=== PATIENT | male | born 1990 | race Caucasian/White ===

== ENCOUNTER 2017-01-29 20:38 | Inpatient (IN) | payer OTHER ==
[~2017-01-29] VITALS: Ht 175.3 cm; Wt 62.6 kg
[2017-01-29] MEDS ORDERED: LORAZEPAM 2 MG/1 ML VIAL IM PRN (21:00)
[2017-01-29] MEDS ORDERED: diphenhydrAMINE 50 MG CAPSULE PO PRN (21:00)
[2017-01-29] MEDS ORDERED: MIRALAX 17 GM POWD.PACK PO PRN (21:00)
[2017-01-29] MEDS ORDERED: LOPERAMIDE HCL 2 MG CAPSULE PO PRN ×2 (21:00)
[2017-01-29] MEDS ORDERED: ACETAMINOPHEN 325 MG TABLET PO PRN (21:00)
[2017-01-29] MEDS ORDERED: DICYCLOMINE HCL 20 MG TABLET PO PRN (21:00)
[2017-01-29] MEDS ORDERED: DIAZEPAM 5 MG TABLET PO PRN (21:00)
[2017-01-29] MEDS ORDERED: ONDANSETRON 4 MG/2 ML VIAL IM PRN (21:00)
[2017-01-29] MEDS ORDERED: DIAZEPAM 10 MG TABLET PO PRN ×2 (21:00)
[2017-01-29] MEDS ORDERED: CLONIDINE HCL 0.1 MG TABLET PO PRN (21:00)
[2017-01-29] MEDS ORDERED: THIAMINE HCL 200 MG/2 ML VIAL IM ONE (21:00)
[2017-01-29] MEDS ORDERED: ONDANSETRON ODT 4 MG TAB.RAPDIS SL PRN (21:00)
[2017-01-29] MEDS ORDERED: IBUPROFEN 600 MG TABLET PO PRN (21:00)
[2017-01-29] MEDS ORDERED: MAG HYDROX/AL HYDROX/SIMETH 30 ML LIQUID UDC PO PRN (21:00)
--- NOTE | 2017-01-29 21:30 | NUR ---
PRE-ADMISSION NOTE: Patient assessed in intake office at 21:30 on 01/29/2017. Patient is ambulatory with steady gate, stable, AOx4, speech is clear. Patient states that he is here, in the [facility] "first time for Safety Detox from prescribed Benzodiazepines". Patient states that he last used Xanax (Alprazolam) on "01/26/2017". Patient can't recalls amount he taken: "I don't know dosage that was - on 01/26/2017". Patient reports that used Xanax (Alprazolam): " 4 mg every day last five months". Patient also reports used Valium (Diazepam) 10 mg every day last 5 months. Last used on 01/29/2017 at 1900. Patient's CIWA 7. The patient reported the following symptoms of withdrawal: anxiety, agitation, nervousness, tremors, body aches, diaphoresis, abdominal cramps, headache, restless legs, insomnia and fatigue. Patient denies SI/HI. Breathing is even and unlabored. Patient denies SOB and chest pain. Last BM was "11/08/16 at 10:00". VS: T: 98'6; BP: 136/82; HR: 105; RR: 19; O2 SAT: 100%. Patient denies pain now: "0/10". Patient reports Allergy to PCN. Patient placed on Full Code, Regular Diet, Fall and Seizures Precautions. Patient instructed on unit protocol of vitals Q4H and COWS/CIWA assessments. Patient verbalized understanding and agreement. Patient also instructed on policy regarding destruction of any controlled substances/prescriptions brought to facility, and handling of all medications. Patient verbalized understanding and agreement. Will complete admission assessment when patient is brought up to unit.
[2017-01-29 21:43] LABS: BASOPHILS # (AUTO) 0.1 K/uL (0.0-8.0); BASOPHILS % (AUTO) 0.9 % (0.0-2.0); EOSINOPHILS # (AUTO) 0.7 K/uL (0.0-0.7); EOSINOPHILS % (AUTO) 5.9 % (0.0-7.0); HEMATOCRIT 43.7 % (40-50); HEMOGLOBIN 14.8 G/DL (14.0-18.0); LYMPHOCYTES # (AUTO) 2.5 K/UL (0.8-4.8); LYMPHOCYTES % (AUTO) 22.6 % (20.5-51.5); MEAN CORPUSCULAR HEMOGLOBIN 34.7 UUG (27.0-31.0); MEAN CORPUSCULAR HGB CONC 34 g/dL (32.0-37.0); MEAN CORPUSCULAR VOLUME 102.8 FL (82.0-92.0); MONOCYTES # (AUTO) 0.8 K/UL (0.1-1.30); MONOCYTES % (AUTO) 7.1 % (0.0-11.0); NEUTROPHILS # (AUTO) 7.1 K/UL (1.8-8.9); NEUTROPHILS % (AUTO) 63.5 % (38.5-71.5); PLATELET COUNT (AUTO) 283 K/UL (150-450); RED BLOOD CELL COUNT(AUTO) 4.25 MIL/UL (4.7-6.1); WHITE BLOOD COUNT (AUTO) 11.2 K/UL (4.0-11.2)
[2017-01-29 21:51] LABS: ALANINE AMINOTRANSFERASE 287 U/L (16-63); ALKALINE PHOSPHATASE 132 U/L (50-136); AMYLASE 65 U/L (25-115); ASPARTATE AMINOTRANSFERASE 237 U/L (15-37); BILIRUBIN,TOTAL 0.6 mg/dL (0.2-1.0); CARBON DIOXIDE 29 mmol/L (21-32); CHLORIDE 99 mmol/L (98-107); CREATININE 0.9 mg/dL (0.6-1.3); GLUCOSE 173 mg/dL (74-106); LIPASE 478 U/L (73-393); MAGNESIUM 1.5 mg/dL (1.8-2.4); POTASSIUM 3.8 mmol/L (3.5-5.1); UREA NITROGEN, BLOOD 11 mg/dL (7-18)
[2017-01-29 21:52] VITALS: BP 136/82
--- NOTE | 2017-01-29 21:52 | NUR ---
ADMISSION NOTE New patient is a 26-year-old male admitted to [facility] on 01/29/2017 at 2152 for medically supervised withdrawal from Benzodiazepines, and Alcohol. Patient reports Allergy to PCN. Patient placed on Full Code, Regular Diet, Fall and Seizures Precautions. Patient denies Seizures History. PCP: Hany Richards MD. Pre-assessment completed in intake. Patient provided UDS test at this time. Patient is ambulatory with steady gate, stable, A&Ox4, speech is clear. VS upon admission: T: 98'6; BP: 136/82; HR: 105; RR: 19; O2 SAT: 100%. Patient denies pain now: "0/10". Ht: 69 in; Wt: 138 lb. CIWA 7. The patient reported the following symptoms of withdrawal: anxiety, agitation, nervousness, tremors, diaphoresis, headache, restless legs, insomnia and fatigue. Patient denies SI/HI. Patient is cooperative, friendly, and verbally appropriate. Patient reports the following substances use: 1."Xanax (Alprazolam) PO 4-6 mg every day since 06/2016. Last dose on 01/26/2017". 2."Valium (Diazepam) PO unspecified dose occasionally. Last use on 01/29/2017 at 1100". 3."Alcohol since 2000. Sober from 2009 to 06/2016. Vodka since 06/2016 12-14 ounces every day. Last use 450 ml on 01/28/2017". 4."Marijuana smoking every day unspecified dose every day since 2000. Last use unspecified dose on 01/29/2017, prior admission". 5. Tobacco smoking 10 cigarettes every day since 2000". Written smoking cessation education provided.. Patient verbalized understanding. Patient reports was transferred from "[facility] for a higher level of care". Patient reports that longest period of sobriety was from 2009 to 06/2016. Patient states that is "first Detox now". Patient reports a history of suicidal ideations. Patient denies current SI/HI. Past Medical History: Anxiety, Depression, Traumatic brain injury, Chronic neuropathic pain, Asperger syndrome. Insomnia, Substances use, Alcohol Abuse, Chronic tobacco use. Home Medications: 1. (Divalproex Sodium) 500 Mg Tablet.dr, 500 MG PO BID, TAB. 2. Olanzapine (OLANZAPINE) 10 Mg Tablet, 10 MG PO HS, TAB. 3. Propranolol Hcl (Propranolol Hcl) 10 Mg Tablet, 10 MG PO TID for ANXIETY, TAB. 4. Ondansetron (Ondansetron Odt) 4 Mg Tab.rapdis, 4 MG PO Q6H PRN for NAUSEA & VOMITING, TAB. 5. Quetiapine Fumarate (Seroquel) 25 Mg Tablet, 25 MG PO BID, TAB. Upon initial assessment, patient's Respirations unlabored and even. Patient denies SOB and chest pain. Lungs Sounds are clear bilaterally. Bowel Sounds active in all x4 quadrants. Abdomen is soft and non-tender. PERRLA, brisk capillary refill, oil burner repairer equal and strong. Skin is intact, warm and dry to touch. Patient oriented to his room, Nurse Call Light, and Serenity Floor. Encourage fluids as tolerated. Encourage to attend activities groups. All needs met. Safety measures on place. Call light within reach, bed in lowest position and locked, padded rails up bilaterally rails up bilaterally. Patient admitted under the care doctor Fletcher Winston MD. Doctor Fletcher Winston MD aware for patient condition. Will continue to monitor closely.
[2017-01-29] MEDS ORDERED: QUET25TA PO (21:54)
[2017-01-29] MEDS ORDERED: DIVA500T7 PO (21:54)
[2017-01-29] MEDS ORDERED: OLAN10TA23 PO (21:54)
[2017-01-29] MEDS ORDERED: PROP10TA10 PO (21:54)
[2017-01-29] MEDS ORDERED: ONDA4TAB11 PO (21:54)
[2017-01-29 21:55] LABS: ETHANOL < 3 MG/DL (0-0)
[2017-01-29 21:59] LABS: *AMPHETAMINE, URINE NEGATIVE (NEGATIVE); *BARBITURATE, URINE NEGATIVE (NEGATIVE); *CANNABINOID, URINE POSITIVE (NEGATIVE); *COCCAINE, URINE NEGATIVE (NEGATIVE); *OPIATE, URINE NEGATIVE (NEGATIVE); *PHENCYCLIDINE SCREEN,URINE NEGATIVE (NEGATIVE)
[2017-01-29] MEDS ORDERED: MAGNESIUM OXIDE 400 MG TABLET PO ONE (22:00)
[2017-01-29 22:13] LABS: THYROID STIMULATING HORMONE 3.088 mIU/mL (0.358-3.740)
[2017-01-29 22:16] LABS: BAND % (MANUAL) 5 % (0-10); LYMPHOCYTES % (MANUAL) 25 % (20-40); NEUTROPHILS % (MANUAL) 58 % (42-75)
[2017-01-29 22:17] LABS: EOSINOPHILS % (MANUAL) 4 % (0-8); MONOCYTES % (MANUAL) 8 % (2-10)
[2017-01-29] MEDS ORDERED: DIAZEPAM 10 MG TABLET PO ONE (22:30)
[2017-01-29] MEDS ORDERED: THIAMINE HCL 200 MG/2 ML VIAL ONE (23:00)
[2017-01-29] MEDS ORDERED: DIAZEPAM 10 MG TABLET ONE (23:01)
[2017-01-29] MEDS ORDERED: MAGNESIUM OXIDE 400 MG TABLET ONE (23:01)
--- NOTE | 2017-01-29 23:03 | NUR ---
MAG-OX 800 MG 2 TAB PO ADMINISTRATION MAG-OX 800 MG 2 TAB PO ADMINISTRATED FOR LOW MAGNESIUM LEVEL, ORDERED. PATIENT TOLERATED WELL. ALL NEEDS MET. SAFETY MEASURES IN THE PLACE: CALL LIGHT WITHIN REACH, BED LOCKED AND IN THE LOWEST POSITION, PADDED RAILS UPX2. WILL CONTINUE TO MONITOR CLOSELY. Addendum: 01/30/17 at 0603 by DANIEL ACEVEDO RN Magnesium Level: 1.5(L).
[2017-01-30] VITALS: BP 131/88
--- NOTE | 2017-01-30 00:45 | NUR ---
PRN BENADRYL 50 MG 1 CAP PO ADMINISTRATION. Patient c/o insomnia and asked aid. PRN Benadryl 50 mg 1 cap PO administrated for insomnia with full glass of water as ordered. Patient tolerated well. All needs met. Safety measures on place. Call light within reach, bed in lowest position and locked, padded rails up bilaterally rails up bilaterally. Will continue to monitor closely.
[2017-01-30] MEDS ORDERED: diphenhydrAMINE 50 MG CAPSULE ONE (00:48)
--- NOTE | 2017-01-30 01:45 | NUR ---
RE-ASSESSMENT Patient is sleeping. Respirations even and unlabored. RR:14. PRN Benadryl PO was effective. All needs met. Safety measures on place. Call light within reach, bed in lowest position and locked, padded rails up bilaterally rails up bilaterally. Will continue to monitor closely.
[2017-01-30 04:00] VITALS: BP 116/80
--- NOTE | 2017-01-30 07:08 | NUR ---
END OF SHIFT NOTE: Patient endorsed to day shift nurse in stable condition. Report given. Patient is a 26-year-old male admitted to [facility] on 01/29/2017 for medically supervised withdrawal from Benzodiazepines and Alcohol. Patient reports Allergy to PCN. Patient is on Full Code, Regular Diet, Fall and Seizures Precautions. Patient denies Seizures History. Past Medical History: Anxiety, Depression, Traumatic brain injury, Chronic neuropathic pain, Asperger syndrome. Insomnia, Substances use, Alcohol Abuse, Chronic tobacco use. VS at 0400: T: 97.7; BP: 116/80; HR: 80; RR: 18; O2 SAT: 100%. Pain level: "0/10". CIWA 3 at 0400. Last shift leader patient presented with the following symptoms of withdrawal: anxiety, agitation, nervousness, tremors, diaphoresis, headache, restless legs, insomnia and fatigue. Patient is calm and cooperative. Patient reports a history of suicidal ideations. Patient denies current SI/HI. Respirations unlabored and even. Patient denies SOB and chest pain. Skin is intact, warm and dry to touch. Floor. Encourage fluids as tolerated. Encourage to attend activities groups Magnesium Oxide (Mag-Ox) 800 mg 2 tab PO administrated as ordered for Magnesium Level: 1.5(L). PRN Benadryl 50 mg 1 cap PO administrated for insomnia and was effective. Patient slept 3 hours, intake 1,250 ml, voided x1. All needs met. Safety measures on place. Call light within reach, bed in lowest position and locked, padded rails up bilaterally.
--- NOTE | 2017-01-30 07:49 | NUR ---
BEGINNING OF SHIFT Patient endorsement report received from slot shift manager nurse, all pertinent information discussed. Patient with admitting Dx: BZO/ETOH dependence. Patient also with substance use of: marijuana and tobacco. Patient currently with ongoing 5 day Valium taper as ordered. Patient with last ciwa score of: 4. Patient Received PRN: Benadryl. slept for 4 hours. Fall and seizure precautions observed and in place. safety measures in place. will continue to monitor closely. Patient received in room, alert and oriented x4, educated regarding plan of care for the day and medication regimen with good verbal understanding. Will continue to monitor.
[2017-01-30 08:28] VITALS: BP 101/73
[2017-01-30] MEDS: MULTIVITAMINS,THERAPEUTIC TABLET PO SCH (08:41)
[2017-01-30] MEDS: FOLIC ACID 1 MG TABLET PO SCH (08:41)
[2017-01-30] MEDS: THIAMINE HCL 100 MG TABLET PO SCH (08:41)
[2017-01-30] MEDS: DIAZEPAM 10 MG TABLET PO SCH ×4 (08:42→21:08)
[2017-01-30] MEDS ORDERED: GABAPENTIN 300 MG CAPSULE PO SCH (09:00)
[2017-01-30] MEDS ORDERED: TUBERCULIN,PURIF.PROT.DERIV. 5 TU/0.1 ML TEST ID ONE (09:00)
[2017-01-30] MEDS: GABAPENTIN 300 MG CAPSULE PO SCH ×2 (09:36→21:08)
[2017-01-30 12:30] VITALS: BP 147/89
--- NOTE | 2017-01-30 13:07 | NUR ---
Therapist prompted client about group times. Client stated he would attend all groups today.
[2017-01-30 17:00] VITALS: BP 131/78
--- NOTE | 2017-01-30 19:28 | NUR ---
END OF SHIFT Patient alert and oriented x4, vital signs were stable during shift. Patient compliant with therapeutic plan of care. Patient continues with ongoing with ongoing 5 day Valium taper as ordered, well tolerated, no ASE noted. Patient at times noted tearful, requires frequent reassurance, provided with non pharmacological interventions as needed and effective. Patient was encouraged to express self. 0900 assessment patient presented with: tremors that can be felt but not seen, moderate anxiety, restlessness, fidgety, and mild head fullness with ciwa score of: 11. 1300 assessment patient presented with: tremors that can be felt but not seen, moderate anxiety, restlessness, fidgety, and mild head fullness with ciwa score of: 11. 1700 assessment patient presented with: During shift patient received no PRN medications. Patient denies any SI/HI. Encouraged patient to attend group therapies/sessions to learn new coping skills to prevent relapse/ Vital signs were stable during shift. Safety measures in place. Will continue to monitor.
[2017-01-30 20:00] VITALS: BP 128/84
--- NOTE | 2017-01-30 20:00 | NUR ---
START OF SHIFT NOTE RECEIVED REPORT FROM DAY SHIFT NURSE. PATIENT IS A 26 YEAR OLD MALE ADMITTED ON 01/29/17 FOR BENZO.ETOH AND MARIJUANA DEPENDENCE. PATIENT IS ALLERGIC TO PENICILLIN . PATIENT IS ON 5 DAY VALIUM TAPER. SKIN INTACT. PATIENT REPORTS PM OF ANXIETY, DEPRESSION,TRAUMATIC BRAIN INJURY. CHRONIC NEUROPATHIC PAIN, ASPERGER SYNDROME AND INSOMNIA. NO SEIZURE HISTORY. PATIENT DID NOT REQUIRE ANY PRN MEDICATIONS. LAST CIWA 9. VS STABLE . HR ELEVATED DUE TO ANXIETY . ON FALL/SEIZURE HISTORY. SAFETY MEASURES IN PLACE. CALL LIGHT IN REACH. WILL CONTINUE TO MONITOR
[2017-01-30] MEDS ORDERED: QUETIAPINE FUMARATE 25 MG TABLET PO SCH (21:00)
[2017-01-31] VITALS: BP 122/84
[2017-01-31] MEDS ORDERED: diphenhydrAMINE 50 MG CAPSULE PO ONE (01:45)
[2017-01-31] MEDS ORDERED: diphenhydrAMINE 50 MG CAPSULE PO PRN (01:45)
--- NOTE | 2017-01-31 01:47 | NUR ---
PRN BENADRYL ADMINISTRATION PATIENT STILL UNABLE TO SLEEP. PRN BENADRYL GIVEN . WILL MONITOR FOR EFFECTIVENESS
[2017-01-31] MEDS ORDERED: diphenhydrAMINE 50 MG CAPSULE ONE (01:57)
--- NOTE | 2017-01-31 02:47 | NUR ---
PRN BENADRYL ADMINISTRATION PATIENT IN BED WITH HIS EYES CLOSED. RESPIRATION EVEN AND UNLABORED. SAFETY MEASURES IN PLACE. CALL LIGHT IN REACH. WILL CONTINUE TO MONITOR
[2017-01-31 04:00] VITALS: BP 104/61
[2017-01-31 06:07] LABS: HEPATITIS B SURFACE AG Negative (Negative)
--- NOTE | 2017-01-31 06:57 | NUR ---
END OF SHIFT NOTE MONITORED THROUGHOUT SHIFT. CONTINUE ON VALIUM TAPER FOR BENZO/ETOH DEPENDENCE, TOLERATED WELL, NO ADVERSE REACTION. PATIENT IS ALLERGIC TO PENICILLIN . PATIENT WITH FLAT AFFECT AND EMOTIONAL. REPORTS ANXIETY , NOTED WITH TREMORS, NO N/V , DENIES ANY PAIN. PATIENT COMPLIANT WITH MEDICATION AND TREATMENT PLAN. PATIENT ATTENDED GROUPS AND WAS HAPPY THAT HE DID BECAUSE HE STATES THAT IT HELPS HIM A LOT. PATIENT WAS GIVEN PRN BENADRYL FOR SLEEP. HR ELEVATED DUE TO ANXIETY . ON FALL/SEIZURE HISTORY. SAFETY MEASURES IN PLACE. CALL LIGHT IN REACH. WILL CONTINUE TO MONITOR. SLEPT 6 HOURS. FLUID INTAKE 1,600 ML. VOIDED X 1. NO BM . LAST CIWA 3.
--- NOTE | 2017-01-31 07:54 | NUR ---
BEGINNING OF SHIFT Patient endorsement report received from party host/hostess nurse, all pertinent information discussed. Patient with admitting Dx: BZO/ETOH dependence. Patient also with substance use of: marijuana and tobacco. Patient currently with ongoing 5 day Valium taper as ordered, and is scheduled to begin day 2 of taper. Patient with last ciwa score of: 3. Patient Received PRN: Benadryl. slept for 6 hours. Fall and seizure precautions observed and in place. safety measures in place. will continue to monitor closely. Patient received in room, alert and oriented x4, educated regarding plan of care for the day and medication regimen with good verbal understanding. Will continue to monitor.
[2017-01-31 08:15] VITALS: BP 91/61
[2017-01-31] MEDS: THIAMINE HCL 100 MG TABLET PO SCH (08:41)
[2017-01-31] MEDS: DIAZEPAM 10 MG TABLET PO SCH ×3 (08:41→20:54)
[2017-01-31] MEDS: GABAPENTIN 300 MG CAPSULE PO SCH ×3 (08:41→20:54)
[2017-01-31] MEDS: MULTIVITAMINS,THERAPEUTIC TABLET PO SCH (08:41)
[2017-01-31] MEDS: FOLIC ACID 1 MG TABLET PO SCH (08:41)
[2017-01-31 09:42] LABS: BILIRUBIN,DIRECT 0.1 mg/dL (0.0-0.2); BILIRUBIN,TOTAL 0.4 mg/dL (0.2-1.0); CREATININE 0.8 mg/dL (0.6-1.3); MAGNESIUM 1.7 mg/dL (1.8-2.4); POTASSIUM 4.1 mmol/L (3.5-5.1); TOTAL PROTEIN, SERUM 6.9 g/dL (6.4-8.2)
[2017-01-31] MEDS ORDERED: DIAZEPAM 5 MG TABLET PO ONE (12:00)
[2017-01-31 12:20] VITALS: BP 145/90
--- NOTE | 2017-01-31 12:29 | NUR ---
MD COMMUNICATION Md notified of patients magnesium level of 1.7, per Md will input orders.
[2017-01-31] MEDS ORDERED: MAGNESIUM OXIDE 400 MG TABLET PO ONE (13:00)
[2017-01-31 17:11] VITALS: BP 123/84
--- NOTE | 2017-01-31 18:56 | NUR ---
END OF SHIFT Patient alert and oriented x4, vital signs were stable during shift. Patient compliant with therapeutic plan of care. Patient continues with ongoing with ongoing 5 day Valium taper as ordered, well tolerated, no ASE noted, patient currently on day 2 of taper. 0900 assessment patient presented with: fine tremors, barely sweating, and moderate anxiety with ciwa score of: 7; 1300 assessment patient presented with: fine tremors, barely sweating, and moderate anxiety with ciwa score of: 7; 1700 assessment patient presented with: fine tremors, barely sweating, and moderate anxiety with ciwa score of: 7. Patient received a one time dose of Valium 5mg PO as ordered by Dr. minor for s/sx of withdrawal. During shift patient received no PRN medications. Patient denies any SI/HI. Encouraged patient to attend group therapies/sessions to learn new coping skills to prevent relapse, noted attending and participating. Vital signs were stable during shift. Safety measures in place. Will continue to monitor.
[2017-01-31 20:00] VITALS: BP 131/90
--- NOTE | 2017-01-31 20:00 | NUR ---
START OF SHIFT Received report from day shift nurse. Pt attended a group meeting and returned to his room after. He is a 26 yo male admitted to [facility] on 01/29 for ETOH and BZD dependence. He is A&O x4 and ambulatory. Allergies to PCN's, full code status, and on a regular diet. He has a PMH of traumatic brain injury, neuropathic pain, asperger symdrome, anxiety, depression, and insomnia. On admission he reported using xanax 4-6mg per day, valium unspecified dose "occasionally", ETOH 12-14oz per day, and marijuana. Pt started a 5 day valium taper on 01/29. He is cooperative with treatment. Pt has full body tremors, anxiety, "neuropathic pain", and mild headache. Pt denies SI. Taper due tonight. Fall and seizure precautions in place. Bed is down with call light in reach.
[2017-01-31] MEDS: CLONIDINE HCL 0.1 MG TABLET PO SCH (20:52)
--- NOTE | 2017-01-31 20:55 | NUR ---
PRN Motrin Pt reports generalized "neuropathic pain" and mild headache. PRN Motrin administered.
[2017-01-31] MEDS ORDERED: QUETIAPINE FUMARATE 25 MG TABLET PO SCH (21:00)
--- NOTE | 2017-01-31 21:55 | NUR ---
PRN Motrin reassessment PRN Motrin reassessment. Pt reports "neuropathic pain" is reduced and headache is relieved.
[2017-01-31] MEDS: QUETIAPINE FUMARATE 100 MG TABLET PO SCH (22:54)
[2017-02-01] VITALS: BP 124/82
--- NOTE | 2017-02-01 04:00 | NUR ---
0400 Vitals refused/CIWA deferred Pt refused to be woken for 0400 B/P. He is lying in bed resting with eyes closed. RR and HR obtained. CIWA ordered Q4HWA. Safety measures in place.
--- NOTE | 2017-02-01 07:20 | NUR ---
END OF SHIFT Report provided to day shift nurse. Pt is lying in bed resting. He is a 26 yo male admitted to [facility] on 01/29 for ETOH and BZD dependence. He is A&O and ambulatory. Allergies to PCN's, full code status, and on a regular diet. He has a PMH of traumatic brain injury, neuropathic pain, asperger symdrome, anxiety, depression, and insomnia. Upon admission he admitted to using xanax 4-6mg per day, valium unspecified dose "occasionally", and ETOH 12-14oz per day, and marijuana. Pt started a 5 day valium taper on 01/29. He is motivated for treatment. PRN Motrin administered. Last CIWA was 4 after medications administered. He drank 1000mL and slept for 7 hours. He reports that his appetite has been slowly improving. Fall and seizure precautions in place. Bed is down with call light in reach.
--- NOTE | 2017-02-01 07:30 | NUR ---
BEGINNING OF SHIFT Patient endorsement report received from dairy feed mixing operator nurse, all pertinent information discussed. Patient with admitting Dx: BZO/ETOH dependence. Patient also with substance use of: marijuana and tobacco. Patient currently with ongoing 5 day Valium taper as ordered, and is scheduled to begin day 3 of taper. Patient with last ciwa score of: 4. Patient Received PRN: Motrin. slept for 7 hours. Fall and seizure precautions observed and in place. safety measures in place. will continue to monitor closely. Patient received in room, alert and oriented x4, educated regarding plan of care for the day and medication regimen with good verbal understanding. Will continue to monitor.
[2017-02-01 08:51] VITALS: BP 108/60
[2017-02-01] MEDS: GABAPENTIN 300 MG CAPSULE PO SCH ×2 (08:53→14:10)
[2017-02-01] MEDS: MULTIVITAMINS,THERAPEUTIC TABLET PO SCH (08:53)
[2017-02-01] MEDS: DIAZEPAM 5 MG TABLET PO SCH ×4 (08:53→21:04)
[2017-02-01] MEDS: FOLIC ACID 1 MG TABLET PO SCH (08:53)
[2017-02-01] MEDS: THIAMINE HCL 100 MG TABLET PO SCH (08:53)
[2017-02-01 08:54] VITALS: BP 118/71
[2017-02-01] MEDS: CLONIDINE HCL 0.1 MG TABLET PO SCH ×3 (08:54→21:05)
--- NOTE | 2017-02-01 10:00 | NUR ---
BEHAVIOR Patient reported having night terrors during the night, noted patient with increase in anxiety and agitation. Patient also with increase tremors. Patient encouraged to express self, provided with non pharmacological intervention and notified staff therapist, staff therapists spoke with patient, patient then calm and reports feeling less anxious. Dr. Winston was notified as well. Safety measures in place. Non pharmacological interventions in place. will continue to monitor.
[2017-02-01 12:50] VITALS: BP 132/78
[2017-02-01] MEDS: BACLOFEN 20 MG TABLET PO PRN (14:09)
--- NOTE | 2017-02-01 14:09 | NUR ---
PRN BACLOFEN Patient with muscle spasm, per Dr. Wniston adminstered Baclofen as ordered, will monitor effectiveness of medication; safety measures in place.
--- NOTE | 2017-02-01 15:09 | NUR ---
BACLOFEN REASSESSMENT Patient reports medication effective, decrease in muscle spasm, will continue to monitor. safety measures in place.
[2017-02-01 16:35] VITALS: BP 131/88
--- NOTE | 2017-02-01 18:57 | NUR ---
END OF SHIFT Patient alert and oriented x4, vital signs were stable during shift. Patient compliant with therapeutic plan of care. Patient continues with ongoing with ongoing 5 day Valium taper as ordered, well tolerated, no ASE noted, patient currently on day 3 of taper. 0900 assessment patient presented with: fine tremors, barely sweating, and anxiety with ciwa score of: 6; 1300 assessment patient presented with: fine tremors, barely sweating, and mild anxiety with ciwa score of: 4. Patient was seen and examined by Dr. Winston. Patient was administered PRN: Baclofen as ordered during shift, medication was effective. Patient denies any SI/HI. Encouraged patient to attend group therapies/sessions to learn new coping skills to prevent relapse, noted attending and participating. Vital signs were stable during shift. Safety measures in place. Will continue to monitor.
--- NOTE | 2017-02-01 18:57 | NUR ---
START OF SHIFT Patient endorsed by outgoing day shift nurse in stable condition. Report received. Patient is a 26-year-old male admitted to [facility] on 01/29/2017 for medically supervised withdrawal from Benzodiazepines and Alcohol. Patient reports Allergy to PCN. Patient is on Full Code, Regular Diet, Fall and Seizures Precautions. Patient denies Seizures History. Past Medical History: Anxiety, Depression, Traumatic brain injury, Chronic neuropathic pain, Asperger syndrome. Insomnia, Substances use, Alcohol Abuse, Chronic tobacco use. Upon endorsement, patient is assessed in her room. Patient is alert and oriented x4. VSWNL. CIWA 4. Patient c/o "increased anxiety", nervousness, and sweating. Respirations even and unlabored. Lung Sounds are clear throughout. Patient denies cough, SOB and chest pain. Heart Rate is regular, no murmur noted. Abdomen is soft, non-tender. Bowel Sounds are active in all four quadrants. Skin is intact, warm and dry to touch. Patient denies SI/HI. Encourage adequate oral fluid intake as tolerated. Encourage to attend groups activities. All needs met. Safety measures in the place. Call light within reach, bed locked and in the lowest position, padded bed rails up x2. Will continue to monitor closely
[2017-02-01 20:00] VITALS: BP 123/78
[2017-02-01] MEDS ORDERED: GABAPENTIN 300 MG CAPSULE PO SCH (21:00)
[2017-02-01] MEDS: QUETIAPINE FUMARATE 100 MG TABLET PO SCH (21:05)
[2017-02-02] VITALS: BP 133/86
[2017-02-02 04:00] VITALS: BP 98/54
--- NOTE | 2017-02-02 07:03 | NUR ---
END OF SHIFT NOTE: Patient endorsed to day shift nurse in stable condition. Report given. Patient is a 26-year-old male admitted to [facility] on 01/29/2017 for medically supervised withdrawal from Benzodiazepines and Alcohol continue ordered 5 Day Valium Taper with tolerated well without ASE. Patient reports Allergy to PCN. Patient is on Full Code, Regular Diet, Fall and Seizures Precautions. Patient denies Seizures History. Past Medical History: Anxiety, Depression, Traumatic brain injury, Chronic neuropathic pain, Asperger syndrome. Insomnia, Substances use, Alcohol Abuse, Chronic tobacco use. VS at 0400: T: 98.4; BP: 98/54; HR: 74; RR: 14; O2 SAT: 100%. Pain level: "0/10". CIWA 3 at 0400. Last weight shifter patient presented with the following symptoms of withdrawal: anxiety, agitation, nervousness, tremors that can be felt, diaphoresis, restless legs, insomnia and fatigue. Patient is calm and cooperative. Patient reports a history of suicidal ideations. Patient denies current SI/HI. Respirations unlabored and even. Patient denies SOB and chest pain. Skin is intact, warm and dry to touch. Encourage fluids as tolerated. Encourage to attend activities groups. No PRN Medications administrated during last weight shifter. Patient slept 3 hours 45 minutes, intake 1,343 ml, voided x2. All needs met. Safety measures on place. Call light within reach, bed in lowest position and locked, padded rails up bilaterally.
--- NOTE | 2017-02-02 07:46 | NUR ---
START OF SHIFT Received report from night nurse. 26 year old male patient admitted on 01/29/17 for benzo, ETOH withdrawals. Pt has been placed on a 5 day Valium taper and is tolerating well. Reports hx of anxiety, depression, traumatic brain injury, chronic neuropathic pain, insomnia. Pt V/S remain WNL. No PRN medications needed or administered at night. Most recent CIWA is 3 at 0400. Pt slept for 4 hours. All needs met at this time, safety measures are in place, will continue to monitor.
[2017-02-02 08:14] VITALS: BP 110/69
[2017-02-02] MEDS: THIAMINE HCL 100 MG TABLET PO SCH (09:26)
[2017-02-02] MEDS: FOLIC ACID 1 MG TABLET PO SCH (09:26)
[2017-02-02] MEDS: CLONIDINE HCL 0.1 MG TABLET PO SCH ×3 (09:26→20:27)
[2017-02-02] MEDS: BACLOFEN 20 MG TABLET PO PRN (09:27)
[2017-02-02] MEDS: MULTIVITAMINS,THERAPEUTIC TABLET PO SCH (09:27)
[2017-02-02] MEDS: GABAPENTIN 300 MG CAPSULE PO SCH ×3 (09:27→20:26)
[2017-02-02] MEDS: DIAZEPAM 5 MG TABLET PO SCH ×3 (09:27→20:26)
--- NOTE | 2017-02-02 09:27 | NUR ---
PRN BACLOFEN Pt reports generalized body aches 5/10 related to withdrawals. PRN Baclofen administered as ordered. Will reassess.
--- NOTE | 2017-02-02 10:27 | NUR ---
REASSESSMENT Pt reports Baclofen was effective and denies discomfort at this time.
[2017-02-02 12:28] VITALS: BP 136/87
[2017-02-02] MEDS: BACLOFEN 20 MG TABLET PO SCH ×2 (14:44→20:26)
--- NOTE | 2017-02-02 15:15 | NUR ---
Clinician encouraged client to attend group. Client responded that he was upset and would not be attending. He was shaking and agitated. Nursing advised.
[2017-02-02 17:06] VITALS: BP 127/87
--- NOTE | 2017-02-02 19:21 | NUR ---
END F SHIFT Endorsed to night nurse. 26 year old male patient admitted on 01/29/17 for benzo, ETOH withdrawals. Pt has been placed on a 5 day Valium taper and is tolerating well. Reports hx of anxiety, depression, traumatic brain injury, chronic neuropathic pain, insomnia. Pt V/S remain WNL. PRN Baclofen was administered for muscle aches. Pt had an episode of increased anxiety and stated "I am having a panic attack" pt verbalized feelings to nurse and calming reassurance provided pt received scheduled dose of Valium and it was effective. Most recent CIWA is 5 at 1700. Pt attends groups. All needs met at this time, safety measures are in place, will continue to monitor. Addendum: 02/02/17 at 1924 by HOME LOYA RN END OF SHIFT
[2017-02-02 20:00] VITALS: BP 140/71
--- NOTE | 2017-02-02 20:00 | NUR ---
Start of Shift Pt is a 26 year old male admitted for Benzo/ETOH dependence, placed on 5 day Valium taper. Pt reported using Xanax PO 4-6mg/daily, Valium PO/occasionally, ETOH 12 - 14 oz/daily and reported use of marijuana. PMH: anxiety, depression, traumatic brain injury, chronic neuropathic pain, Asperger syndrome, insomnia, and hx of substance abuse. Reports allergies to PCN, fall/seizure precautions - no hx of seizures, regular diet and full code. Upon assessment, pt is restless, unable to sit still, tremors visible, skin clammy/flushed, reports feeling very upset and anxious, respirations even/unlabored, denies SOB/chest pain, medications due, Safety measures in place, call light within reach, side rails up x2, bed locked and in low position. Will continue to monitor.
[2017-02-02] MEDS: QUETIAPINE FUMARATE 100 MG TABLET PO SCH (20:26)
[2017-02-03] VITALS: BP 135/88
--- NOTE | 2017-02-03 04:00 | NUR ---
Pt refused to be woken up for 0400 Vital Signs CIWA deferred d/t pt sleeping, to assess while pt is awake as ordered. Safety measures in place. Will continue to monitor.
--- NOTE | 2017-02-03 07:00 | NUR ---
End of Shift Pt is a 26 year old male admitted for Benzo/ETOH dependence, placed on 5 day Valium taper. Pt reported using Xanax PO 4-6mg/daily, Valium PO/occasionally, ETOH 12 - 14 oz/daily and reported use of marijuana. PMH: anxiety, depression, traumatic brain injury, chronic neuropathic pain, Asperger syndrome, insomnia, and hx of substance abuse. Reports allergies to PCN, fall/seizure precautions - no hx of seizures, regular diet and full code. During shift, pt presented with restlessness, unable to sit still, tremors visible, skin clammy/flushed, reported feeling very upset and anxious - scheduled taper medications administered, CIWA 5. No PRN medications administered. Pt slept for 4 hours, intake of 2749 ml PO, voids x3 and stool x0. Safety measures in place, call light within reach, side rails up x2, bed locked and in low position. Endorsed to day shift nurse.
--- NOTE | 2017-02-03 07:01 | NUR ---
Start of Shift Notes: Received patient in his room. Alert and verbally responsive. Oriented x 4. Able to make needs known. Respirations even and unlabored. No SOB noted. Skin warm and dry to touch. Abdomen soft and non-distended with (+) BS in all 4 quadrants. No complains of N/V/D or constipation noted. Voids independently. No complains of dysuria noted. Ambulatory ad cat with steady gait. Patient is a 26 year old male admitted for BZO and ETOH dependence who was placed on a 5-day Valium taper as ordered. No adverse reactions noted. Has past medical hx of anxiety, depression, TBI, chronic neuropathic pain, insomnia, and Asperger's Syndrome. Allergic to PCN. FULL CODE. Regular diet. On fall and seizure precautions. Educated patient on the current plan of care for the day and her medication regimen. Encouraged oral fluid intake and encouraged group participation to learn new skills to prevent relapse. Siderails up and padded for safety. Call light kept in reach. Will continue to monitor closely.
[2017-02-03 08:00] VITALS: BP 110/71
[2017-02-03] MEDS: FOLIC ACID 1 MG TABLET PO SCH (08:42)
[2017-02-03] MEDS: DIAZEPAM 5 MG TABLET PO SCH ×2 (08:42→21:28)
[2017-02-03] MEDS: GABAPENTIN 300 MG CAPSULE PO SCH ×2 (08:42→14:07)
[2017-02-03] MEDS: BACLOFEN 20 MG TABLET PO SCH ×3 (08:42→21:28)
[2017-02-03] MEDS: THIAMINE HCL 100 MG TABLET PO SCH (08:42)
[2017-02-03] MEDS: CLONIDINE HCL 0.1 MG TABLET PO SCH ×2 (08:42→14:06)
[2017-02-03] MEDS: MULTIVITAMINS,THERAPEUTIC TABLET PO SCH (08:42)
--- NOTE | 2017-02-03 10:40 | NUR ---
Psych MD visit: Patient seen & examined by Dr. Palacios with new orders to increase Seroquel due to inability to sleep. Orders noted and carried out. Patient education was provided and was informed.
--- NOTE | 2017-02-03 10:51 | NUR ---
New orders: New order obtained from MD Winston for patient to be on Vistaril 25 mg PO q 6 hours PRN for anxiety. is unable to enter in orders at this time. He is away from a computer. Orders noted and carried out. Patient education provided. Will continue to monitor.
[2017-02-03] MEDS ORDERED: HYDROXYZINE PAMOATE 25 MG CAPSULE PO PRN (11:00)
[2017-02-03 12:00] VITALS: BP 133/80
[2017-02-03 16:00] VITALS: BP 136/77
--- NOTE | 2017-02-03 19:17 | NUR ---
End of Shift Notes: Patient continues to be on 5-day Valium taper as ordered. No adverse reactions noted. Patient Is tolerating his taper well. VS monitored closely q 4 hours. No significant abnormalities noted. Withdrawal symptoms were closely monitored. Initial CIWA 9, patient presented with gorss tremors, anxiety, sweats and mild agitation. Initial CIWA 9. Last CIWA6. Per patient, Valium has been effective in reducing his withdrawal symptoms. Compliant with care and treatment. Able to participate in group and activities despite his withdrawal symptoms. All needs met and attended. Call light in reach. Will continue to monitor closely.
[2017-02-03 20:00] VITALS: BP 118/67
--- NOTE | 2017-02-03 20:00 | NUR ---
Start of Shift Pt is a 26 year old male admitted for Benzo/ETOH dependence, placed on 5 day Valium taper. Pt reported using Xanax PO 4-6mg/daily, Valium PO/occasionally, ETOH 12 - 14 oz/daily and reported use of marijuana. PMH: anxiety, depression, traumatic brain injury, chronic neuropathic pain, Asperger syndrome, insomnia, and hx of substance abuse. Reports allergies to PCN, fall/seizure precautions - no hx of seizures, regular diet and full code. Upon assessment, Pt reported feeling anxious, tremors visible, reports aches throughout body, skin clammy/flushed, respirations even/unlabored, denies SOB/chest pain, medications due, Safety measures in place, call light within reach, side rails up x2, bed locked and in low position. Will continue to monitor.
[2017-02-03] MEDS ORDERED: QUETIAPINE FUMARATE 100 MG TABLET PO SCH (21:00)
[2017-02-03] MEDS: QUETIAPINE FUMARATE 200 MG TABLET PO SCH (21:28)
[2017-02-03] MEDS: GABAPENTIN 400 MG CAPSULE PO SCH (21:28)
[2017-02-03] MEDS: CLONIDINE HCL 0.2 MG TABLET PO SCH (21:29)
[2017-02-04] VITALS: BP 106/68
--- NOTE | 2017-02-04 04:00 | NUR ---
Pt refused to be woken up for 0400 Vital Signs CIWA deferred d/t pt sleeping to assess while pt is awake as ordered. Safety measures in place. Will continue to monitor.
--- NOTE | 2017-02-04 07:00 | NUR ---
End of Shift Pt is a 26 year old male admitted for Benzo/ETOH dependence, placed on 5 day Valium taper. Pt reported using Xanax PO 4-6mg/daily, Valium PO/occasionally, ETOH 12 - 14 oz/daily and reported use of marijuana. PMH: anxiety, depression, traumatic brain injury, chronic neuropathic pain, Asperger syndrome, insomnia, and hx of substance abuse. Reports allergies to PCN, fall/seizure precautions - no hx of seizures, regular diet and full code. During shift, Pt reported feeling anxious, tremors visible, reported aches throughout body, skin clammy/flushed scheduled taper medications administered, effective in management of s/s of withdrawal as evidenced by CIWA 5 decreased to CIWA 4. No PRN medications administered. Pt slept for 6 hours, intake of 1343 ml PO, voids x2 and stool x1. Safety measures in place, call light within reach, side rails up x2, bed locked and in low position. Endorsed to day shift nurse.
[2017-02-04 08:00] VITALS: BP 117/81
[2017-02-04] MEDS: BACLOFEN 20 MG TABLET PO SCH ×3 (09:43→21:08)
[2017-02-04] MEDS: THIAMINE HCL 100 MG TABLET PO SCH (09:43)
[2017-02-04] MEDS: FOLIC ACID 1 MG TABLET PO SCH (09:43)
[2017-02-04] MEDS: MULTIVITAMINS,THERAPEUTIC TABLET PO SCH (09:44)
[2017-02-04] MEDS: CLONIDINE HCL 0.1 MG TABLET PO SCH ×2 (09:44→15:07)
[2017-02-04] MEDS: GABAPENTIN 400 MG CAPSULE PO SCH ×3 (09:45→21:08)
[2017-02-04] MEDS ORDERED: OLANZAPINE 10 MG VIAL IM ONE (10:15)
[2017-02-04] MEDS ORDERED: LORAZEPAM 2 MG/1 ML VIAL IM ONE (10:15)
--- NOTE | 2017-02-04 10:49 | NUR ---
ASSUMED CARE assumed care from patient from primary nurse, all pertinent information discussed, will continue to monitor closely.
--- NOTE | 2017-02-04 10:50 | NUR ---
MD COMMUNICATION Patient noted with increase in agitation, and restlessness, appears catatonic, patient noted crying and reports feeling very anxious, per Dr. Palacios and Dr. Winston patient to receive a one time dose of Zyprexa IM and Ativan IM, will administer medications as ordered. patients vital signs WNL. Patient was provided with non pharmacological intervention with no relief, continues with increase agitation and anxiety. patient placed on 1:1 sitter for safety precautions. Patient denies SI/HI. Safety measures in place.
--- NOTE | 2017-02-04 11:02 | NUR ---
PRN ZYPREXA/ATIVAN Patient noted with increase in agitation, and restlessness, appears catatonic, patient noted crying and reports feeling very anxious,Administered Zyprexa IM to left deltoid and Ativan IM to right deltoid, as ordered. patients vital signs WNL, bp: 120/73 heart rate: 102. Patient was provided with non pharmacological intervention with no relief, continues with increase agitation and anxiety. patient placed on 1:1 sitter for safety precautions. Patient denies SI/HI. Safety measures in place. Will monitor effectiveness of medication.
--- NOTE | 2017-02-04 11:32 | NUR ---
ZYPREXA/ATIVAN REASSESSMENT Medications were effective, patient is noted with decrease in agitation, reports feels less anxious, noted with decrease restlessness. vs WNL. Will continue to monitor closely. safety measures in place.
[2017-02-04 13:00] VITALS: BP 114/68
[2017-02-04] MEDS ORDERED: HYDROXYZINE PAMOATE 25 MG CAPSULE PO PRN (13:15)
[2017-02-04] MEDS ORDERED: GABA-536 PO (14:18)
[2017-02-04] MEDS ORDERED: QUET200T PO (14:18)
[2017-02-04] MEDS ORDERED: CLON0.1T14 PO (14:18)
[2017-02-04] MEDS ORDERED: DICY20TA28 PO (14:18)
[2017-02-04] MEDS ORDERED: IBUP-1955 PO (14:18)
[2017-02-04] MEDS ORDERED: HYDR-3895 PO (14:18)
[2017-02-04] MEDS ORDERED: BACL20TA PO (14:18)
[2017-02-04] MEDS ORDERED: CLON0.2T12 PO (14:18)
[2017-02-04 17:00] VITALS: BP 121/74
--- NOTE | 2017-02-04 17:52 | NUR ---
PSYCHIATRIST COMMUNICATION Per interior design project manager, patients discharge and placement options were being discussed with patient, patient verbalized not feeling happy about his placement and he feels very angry, as per disease case manager rn, patient verbalized "if i wasn't feeling suicidal before now i am" Patient was approached by staff nurse, in calm and friendly manner, encouraged patient to express self, as per patient "i feel like punching myself, but i wont, i just feel angry" Per patient denies any suicidal ideations as per patient he is just upset. Patient denies any homicidal ideations. patient continues on 1:1. Dr. Palacios was notified and made aware, as per Md patient to continue with 1: 1 sitter. Will continue to monitor closely, safety measures in place.
--- NOTE | 2017-02-04 18:47 | NUR ---
END OF SHIFT Patient alert and oriented x4, vital signs were stable during shift. Patient compliant with therapeutic plan of care. Patient completed Valium taper and is scheduled to be discharged tomorrow morning,. During shift patient with episode of increase in agitation and anxiety, was administered one time order of zyprexa im 10mg and Ativan 1 mg IM, administered as ordered, medications were effective one hour post administration. Patient requires frequent reassurance and redirection, continues on 1: 1 sitter for safety precautions. 1300 assessment patient presented with: tremors that can be felt but not seen, and mild anxiety; 1700 assessment patient presented with: tremors that can be felt but not seen and mild anxiety with: ciwa score of: 2. Patient was seen and examined by Dr. Winston, was also seen and examined by Dr. Palacios . Patient denies any SI/HI. Encouraged patient to attend group therapies/sessions to learn new coping skills to prevent relapse, noted attending and participating. Vital signs were stable during shift. Safety measures in place. Will continue to monitor.
--- NOTE | 2017-02-04 19:30 | NUR ---
Start of Shift Note: Received pt from day shift nurse. Patient is a 26 y/o male admitted on 01/29/17 from ETOH and Benzo dependence. Patient with past medical history of Anxiety, Depression, Traumatic Brain Injury, Chronic Neuropathic pain, Asperger Syndrome & Insomnia. No seizure history noted. Patient is on a regular diet with allergies to Penicillin. Full Code status noted. Skin noted to be intact. Fall and Seizure precaution noted. Patient completed his 5-day Valium taper and he is scheduled to be discharge tomorrow. Urine drug screen collected. Patient was given a one time dose of Zyprexa 10mg IM & Ativan 1mg IM for episode of anxiety & agitation during day shift. Patient is alert & oriented x4. Patient is ambulatory with a steady gait. Patient observed in room with no s/s of distress noted. No complains of pain/discomfort noted. Patient appears anxious and agitated. Pt stated he is angry and that he does not want to go to his discharge place and that he is not ready yet to leave yet. Patient continues on a 1:1 observation for safety. Safety precautions are in place. Bed locked in lowest position. Both side rails up. Call light within pts reach. Will continue to monitor patient.
[2017-02-04 20:00] VITALS: BP 127/75
[2017-02-04 20:06] LABS: *AMPHETAMINE, URINE NEGATIVE (NEGATIVE); *BARBITURATE, URINE NEGATIVE (NEGATIVE); *CANNABINOID, URINE POSITIVE (NEGATIVE); *COCCAINE, URINE NEGATIVE (NEGATIVE); *OPIATE, URINE NEGATIVE (NEGATIVE); *PHENCYCLIDINE SCREEN,URINE NEGATIVE (NEGATIVE)
[2017-02-04] MEDS: QUETIAPINE FUMARATE 200 MG TABLET PO SCH (21:08)
[2017-02-04] MEDS: CLONIDINE HCL 0.2 MG TABLET PO SCH (21:10)
--- NOTE | 2017-02-05 | NUR ---
Vitals/Ciwa deferred Pt refused Vital Signs, Unable to assess Ciwa at this time. Patient not in any distress. Will continue to monitor.
--- NOTE | 2017-02-05 04:00 | NUR ---
Vitals/Ciwa deferred Pt refused to be woken up for 0400 Vital Signs, Unable to assess Ciwa at this time. Patient not in any distress. Will continue to monitor.
--- NOTE | 2017-02-05 07:15 | NUR ---
Start of shift note Pt was admitted for benzo and ETOH dependence. Pt has a PMHx of anxiety, depression, traumatic brain injury, chronic neuropathic pain and insomnia. Pt has completed a 5 day valium taper. Pt is on a 1:1 for his anxiety and agitation. Pt anxiety is extremely high. Pt has no further complaints at this time. Will continue to monitor pt. All needs addressed at this time.
--- NOTE | 2017-02-05 07:17 | NUR ---
End of Shift Note: Patient had an uneventful night. Patient remained stable with no s/s of distress noted. Vitals remains WNL. Patient remained compliant with treatment plan. Patient completed his Valium taper and he is scheduled to be discharge today. Urine drug screen collected and resulted. Last Ciwa is 5. No PRN medications given during my shift. Patient still asleep at this time. Pt slept well throughout the night with a total of 7 hours. Pt consumed 845ml of fluids. Voided 1x with no bowel movement. All needs attended & met. Safety measures in place. Will endorse pt to day shift nurse.
[2017-02-05 08:00] VITALS: BP 103/70
[2017-02-05] MEDS: MULTIVITAMINS,THERAPEUTIC TABLET PO SCH (08:15)
[2017-02-05] MEDS: CLONIDINE HCL 0.1 MG TABLET PO SCH ×2 (08:15→15:14)
[2017-02-05] MEDS: FOLIC ACID 1 MG TABLET PO SCH (08:15)
[2017-02-05] MEDS: BACLOFEN 20 MG TABLET PO SCH ×3 (08:15→20:24)
[2017-02-05] MEDS: GABAPENTIN 400 MG CAPSULE PO SCH ×3 (08:16→20:24)
[2017-02-05] MEDS: THIAMINE HCL 100 MG TABLET PO SCH (08:16)
[2017-02-05 12:00] VITALS: BP 134/86
--- NOTE | 2017-02-05 14:50 | NUR ---
Therapist prompted client about group times. Client stated he will be at all groups.
--- NOTE | 2017-02-05 16:00 | NUR ---
VS Pt noted to have a heart rate of 109, Dr Mejia notified, NNO. Will continue to monitor pt.
[2017-02-05 17:00] VITALS: BP 135/83
--- NOTE | 2017-02-05 18:58 | NUR ---
End of shift note vPt was admitted for benzo and ETOH dependence. Pt has a PMHx of anxiety, depression, traumatic brain injury, chronic neuropathic pain and insomnia. Pt reports an allergy to PCN, is a full code and is on a regular diet. Pt has completed a 5 day valium taper without any ASE. Pt 1:1 was d/cd per Dr Palacios. Pt has been participating in all groups and activities. Pt has a recent CIWA of 5. Pt has no complaints at this time. Will continue to monitor pt. All needs addressed at this time. Will endorse SBAR to oncoming shift.
[2017-02-05 20:00] VITALS: BP 118/81
--- NOTE | 2017-02-05 20:00 | NUR ---
Start of Shift Pt is a 26 year old male admitted for Benzo/ETOH dependence, placed on 5 day Valium taper - completed taper. reported using Xanax PO 4-6mg/daily, Valium PO/occasionally, ETOH 12 - 14 oz/daily and reported use of marijuana. PMH: anxiety, depression, traumatic brain injury, chronic neuropathic pain, Asperger syndrome, insomnia, and hx of substance abuse. Reports allergies to PCN, fall/seizure precautions - no hx of seizures, regular diet and full code. Upon assessment, Pt reported feeling anxious due discharge tomorrow, reports mild aches throughout body, respirations even/unlabored, denies SOB/chest pain. Pt is scheduled for discharge tomorrow. Safety measures in place, call light within reach, side rails up x2, bed locked and in low position. Will continue to monitor.
[2017-02-05] MEDS: CLONIDINE HCL 0.2 MG TABLET PO SCH (20:24)
[2017-02-05] MEDS: QUETIAPINE FUMARATE 200 MG TABLET PO SCH (20:24)
[2017-02-06] VITALS: BP 130/85
--- NOTE | 2017-02-06 04:00 | NUR ---
Pt refused to be woken up for 0400 Vital Signs CIWA deferred d/t pt sleeping, to assess while pt is awake as ordered. Safety measures in place. will continue to monitor.
--- NOTE | 2017-02-06 07:00 | NUR ---
End of Shift Pt is a 26 year old male admitted for Benzo/ETOH dependence, placed on 5 day Valium taper - completed taper. reported using Xanax PO 4-6mg/daily, Valium PO/occasionally, ETOH 12 - 14 oz/daily and reported use of marijuana. PMH: anxiety, depression, traumatic brain injury, chronic neuropathic pain, Asperger syndrome, insomnia, and hx of substance abuse. Reports allergies to PCN, fall/seizure precautions - no hx of seizures, regular diet and full code. During shift, Pt reported feeling anxious due discharge today, reported mild aches throughout body - scheduled medications administered, effective, CIWA 3. No PRN medications administered. Pt is scheduled for discharge today. Pt slept for 5 hours, intake of 1592 ml PO, voids x1 and stool x_1. Safety measures in place, call light within reach, side rails up x2, bed locked and in low position. Endorsed to day shift nurse.
--- NOTE | 2017-02-06 07:08 | NUR ---
Start of Shift Endorsement received from nightshift nurse. Pt is a 26 y/o male admitted for Xanax, valium and alcohol dependence. Pt has been placed on a 5 day Valium taper. Pt has completed the taper and has been scheduled to be discharged today, 02/06/17. All discharge education and documentation has been completed. PT reports readiness for discharge. Pt is tolerating the detox AEB CIWA 3 at midnight. Pt reports sleeping 5 hours. Full Code. VS WNL. PT is alert and oriented x4. Pt is in STABLE condition at this time. Remains compliant with medication and diet regimen. All needs have been met, All safety measures in place per hospital policy. Bed in lowest position, side rails up x2, call-light within reach. Will continue to monitor
[2017-02-06 08:00] VITALS: BP 125/70
[2017-02-06] MEDS: THIAMINE HCL 100 MG TABLET PO SCH (08:04)
[2017-02-06] MEDS: GABAPENTIN 400 MG CAPSULE PO SCH (08:04)
[2017-02-06 08:05] VITALS: BP 125/76
[2017-02-06] MEDS: FOLIC ACID 1 MG TABLET PO SCH (08:05)
[2017-02-06] MEDS: BACLOFEN 20 MG TABLET PO SCH (08:05)
[2017-02-06] MEDS: CLONIDINE HCL 0.1 MG TABLET PO SCH (08:05)
[2017-02-06] MEDS: MULTIVITAMINS,THERAPEUTIC TABLET PO SCH (08:05)
--- NOTE | 2017-02-06 13:40 | NUR ---
Discharge note PT has been discharged from [facility] to [facility]. PT is in Stable condition, VS WNL. Denies suicidal and homicidal ideations at this time. . All documentation has been completed, paperwork signed and dated. Pt left with all of his belongings, medications and prescriptions. Pt has been discharged from [facility] on 02/06/17 at 1340. has been Notified.
== END 2017-02-06 13:40 | disposition other institution (70) | DRG 895 ==
LOC: SRC 20:38
PROVIDERS: ADMIT Internal Medicine; ATTEND Internal Medicine
PROC: HZ2ZZZZ Detoxification Services for Substance Abuse Treatment (ICD-10-PCS; principal; 2017-01-29)
PROC: HZ41ZZZ Group Counseling for Substance Abuse Treatment, Behavioral (ICD-10-PCS; 2017-01-30)
PROC: HZ31ZZZ Individual Counseling for Substance Abuse Treatment, Behavioral (ICD-10-PCS; 2017-02-01)
DX: F10.232 Alcohol dependence with withdrawal with perceptual disturbance (principal); K85.20 Alcohol induced acute pancreatitis without necrosis or infection; K70.10 Alcoholic hepatitis without ascites; I15.9 Secondary hypertension, unspecified; F33.3 Major depressive disorder, recurrent, severe with psychotic symptoms; E83.42 Hypomagnesemia; F84.5 Asperger's syndrome; F13.230 Sedative, hypnotic or anxiolytic dependence with withdrawal, uncomplicated; Y90.0 Blood alcohol level of less than 20 mg/100 ml; Z79.899 Other long term (current) drug therapy; Z87.820 Personal history of traumatic brain injury; G89.29 Other chronic pain; G62.9 Polyneuropathy, unspecified; G47.00 Insomnia, unspecified; F11.21 Opioid dependence, in remission; R73.9 Hyperglycemia, unspecified; F17.210 Nicotine dependence, cigarettes, uncomplicated; F12.90 Cannabis use, unspecified, uncomplicated; F51.4 Sleep terrors [night terrors]; Z81.8 Family history of other mental and behavioral disorders; F41.9 Anxiety disorder, unspecified
CPT/HCPCS: 36415; 70030-TC; 80307; 80346; 80349; 83690; 83735; 84443; 85025; 86580; 86592; 86705; 86803; 87340; 87806; A4663; G0480; J2060; J2358; J3411; Q0163